=== PATIENT | female | born 1960 ===

== ENCOUNTER 2018-06-30 07:53 | Outpatient (CLI) | payer OTHER | END 2018-06-30 07:55 | disposition home or self-care (01) | LOC: SONOGRAMA 07:53 | DX: E04.1 Nontoxic single thyroid nodule (principal) ==

== ENCOUNTER → 2019-02-02 | Outpatient (CLI) | payer OTHER | END | disposition home or self-care (01) | LOC: SONOGRAMA 10:18 | DX: E04.1 Nontoxic single thyroid nodule (principal) ==

== ENCOUNTER 2023-12-27 06:47 | Outpatient (CLI) | payer OTHER | END 2023-12-27 06:49 | disposition home or self-care (01) | LOC: SONOGRAMA 06:47 | PROVIDERS: ATTEND Pathology Anatomic Pathology & Clinical Pathology | DX: D34 Benign neoplasm of thyroid gland (principal); E07.89 Other specified disorders of thyroid; E04.1 Nontoxic single thyroid nodule ==